=== PATIENT | female | born 1955 | race Caucasian/White ===

== ENCOUNTER 2019-07-06 10:52 | Inpatient (IN) | payer MEDICARE, OTHER ==
[~2019-07-06] VITALS: Ht 167.6 cm; Wt 79.2 kg
--- NOTE | 2019-07-06 11:00 | NUR ---
pt presented to ER ambulatory for C/O bloody stool x2 episode AA/Ox4. able to speak in complete sentences. able to make needs known Respiration even and unlabored No s/s cardiovascular distress noted SR up for safety. placed on a gown. bed locked, lowest position. instructed pt to call nurse for assistance monitored accordingly. Will continue to monitor patient.
--- NOTE | 2019-07-06 11:00 | NUR ---
Dr. Corea in [facility] for MSE Addendum: 07/06/19 at [address] Corea at [facility] for [facility].
[2019-07-06] MEDS ORDERED: metoprolol PO (11:06)
[2019-07-06] MEDS ORDERED: ATOR20TA PO (11:06)
[2019-07-06] MEDS ORDERED: FAMO-132 PO (11:06)
[2019-07-06] MEDS ORDERED: ESCI20TA PO (11:06)
[2019-07-06] MEDS ORDERED: wellbutrin PO (11:06)
[2019-07-06] MEDS ORDERED: PANTOPRAZOLE SODIUM 40 MG VIAL IV ONE (11:15)
[2019-07-06] MEDS ORDERED: PANTOPRAZOLE SODIUM 40 MG VIAL ONE (11:44)
--- NOTE | 2019-07-06 11:58 | NUR ---
report given to Silvino VILLEGAS
[2019-07-06 12:04] LABS: BASOPHILS # (AUTO) 0.1 K/uL (0.0-8.0); BASOPHILS % (AUTO) 0.7 % (0.0-2.0); EOSINOPHILS # (AUTO) 0.2 K/uL (0.0-0.7); EOSINOPHILS % (AUTO) 2.4 % (0.0-7.0); HEMATOCRIT 38.4 % (31.2-41.9); LYMPHOCYTES # (AUTO) 2.9 K/uL (20.0-40.0); LYMPHOCYTES % (AUTO) 40.1 % (20.5-51.5); MEAN CORPUSCULAR HEMOGLOBIN 30.2 uug (24.7-32.8); MEAN CORPUSCULAR HGB CONC 34 g/dL (32.3-35.6); MEAN CORPUSCULAR VOLUME 89.4 fL (75.5-95.3); MONOCYTES # (AUTO) 0.4 K/uL (2.0-10.0); MONOCYTES % (AUTO) 5.9 % (0.0-11.0); NEUTROPHILS # (AUTO) 3.7 K/uL (1.8-8.9); NEUTROPHILS % (AUTO) 50.9 % (38.5-71.5); PLATELET COUNT (AUTO) 204 K/uL (179-408); RED BLOOD CELL COUNT(AUTO) 4.29 MIL/uL (3.63-4.92); WHITE BLOOD COUNT (AUTO) 7.3 K/uL (3.8-11.8)
[2019-07-06 12:14] LABS: CREATININE 0.7 mg/dL (0.6-1.3); POTASSIUM 4.7 mmol/L (3.5-5.1)
[2019-07-06 12:20] LABS: BILIRUBIN,DIRECT 0.1 mg/dL (0.0-0.2); BILIRUBIN,TOTAL 0.6 mg/dL (0.2-1.0); TOTAL PROTEIN, SERUM 7.1 g/dL (6.4-8.2)
--- NOTE | 2019-07-06 12:20 | NUR ---
Pt. admitted to Tele Room 314 , under care of Dr. Sandeep Pepe Belongs List completed. All belongings with pt AA/Ox4. Able to speak in complete sentences No s/s of distress noted No s/s cardiovascular distress
[2019-07-06 12:25] VITALS: BP 129/71
[2019-07-06] MEDS ORDERED: GOLYTELY 4000 ML BOTTLE PO ONE (12:45)
[2019-07-06 16:00] VITALS: BP 103/52
[2019-07-06] MEDS ORDERED: ACETAMINOPHEN 325 MG TABLET PO PRN (17:00)
[2019-07-06] MEDS ORDERED: MORPHINE SULFATE 2 MG/1 ML DISP.SYRIN IV PRN (17:00)
[2019-07-06] MEDS ORDERED: ONDANSETRON 4 MG/2 ML VIAL IV PRN (17:00)
--- NOTE | 2019-07-06 19:30 | NUR ---
Received patient awake and alert in bed, no signs of acute distress noted. Patient is A/Ox4. complains of some abdominal pain, tolerable. Patient is for EGD/colonoscopy procedure at [address] Snowden. NPO after midnight. Patient almost finished with golytely. No reports of bloody stool. Heplock on the right hand is intact and patent. Safety measures initiated. Bed is low and locked, call light within reach. Will continue to monitor.
[2019-07-06 20:04] VITALS: BP 122/63
[2019-07-06] MEDS: IV D5/ 0.9% NACL 1,000 ML IV PRN (20:59)
[2019-07-06] MEDS: PANTOPRAZOLE SODIUM 40 MG VIAL IV SCH (21:15)
[2019-07-07] VITALS: BP 119/56
--- NOTE | 2019-07-07 00:05 | NUR ---
Patient moved to room 305
[2019-07-07 04:23] VITALS: BP 121/63
--- NOTE | 2019-07-07 05:30 | NUR ---
Consent signed for EGD/colonoscopy
[2019-07-07 05:36] LABS: BASOPHILS # (AUTO) 0.1 K/uL (0.0-8.0); BASOPHILS % (AUTO) 1.1 % (0.0-2.0); EOSINOPHILS # (AUTO) 0.2 K/uL (0.0-0.7); EOSINOPHILS % (AUTO) 2.5 % (0.0-7.0); HEMATOCRIT 36.1 % (31.2-41.9); HEMOGLOBIN 12.2 g/dL (10.9-14.3); LYMPHOCYTES # (AUTO) 2.9 K/uL (20.0-40.0); LYMPHOCYTES % (AUTO) 40.3 % (20.5-51.5); MEAN CORPUSCULAR HEMOGLOBIN 30.4 uug (24.7-32.8); MEAN CORPUSCULAR HGB CONC 34 g/dL (32.3-35.6); MEAN CORPUSCULAR VOLUME 89.7 fL (75.5-95.3); MONOCYTES # (AUTO) 0.4 K/uL (2.0-10.0); MONOCYTES % (AUTO) 5.9 % (0.0-11.0); NEUTROPHILS # (AUTO) 3.5 K/uL (1.8-8.9); NEUTROPHILS % (AUTO) 50.2 % (38.5-71.5); PLATELET COUNT (AUTO) 188 K/uL (179-408); RED BLOOD CELL COUNT(AUTO) 4.03 MIL/uL (3.63-4.92); WHITE BLOOD COUNT (AUTO) 7.1 K/uL (3.8-11.8)
[2019-07-07 05:43] LABS: CREATININE 0.7 mg/dL (0.6-1.3); POTASSIUM 4.1 mmol/L (3.5-5.1)
--- NOTE | 2019-07-07 07:30 | NUR ---
Recieved pt lying in bed, awake, alert and orientedx3. Color is good. Denies any abdomenal discomforts, no bleeding noted. Kept NPO. Main IVF is D5NS at 85ml/hr on her right hand g#20. Pre-op checklist done. Pt is going to have an EGD and colonoscopy at 10:30AM. Consent is signed.
[2019-07-07 08:00] VITALS: BP 117/66
[2019-07-07] MEDS: PANTOPRAZOLE SODIUM 40 MG VIAL IV SCH (08:23)
[2019-07-07 08:25] LABS: *BILIRUBIN,URIN NEGATIVE (NEGATIVE); *BLOOD, URINE NEGATIVE (NEGATIVE); *CLARITY,URINE CLEAR (CLEAR); *COLOR,URINE YELLOW (YELLOW); *KETONES,URINE NEGATIVE (NEGATIVE); *UROBILINOGEN,URINE 0.2 E.U./dl (NORMAL); LEUKOCYTE ESTERASE ,URINE NEGATIVE (NEGATIVE); NITRITE, URINE NEGATIVE (NEGATIVE); UGLUCOSE NEGATIVE (NEGATIVE)
[2019-07-07] MEDS: IV D5/ 0.9% NACL 1,000 ML IV PRN (09:25)
--- NOTE | 2019-07-07 10:15 | NUR ---
Pt is brought down to the GI lab via gurney. Condition is stable.
[2019-07-07] MEDS ORDERED: MIDAZOLAM HCL 2 MG/2 ML VIAL ONE (10:43)
[2019-07-07] MEDS ORDERED: PROPOFOL 200 MG/20 ML BOTTLE ONE (10:44)
--- NOTE | 2019-07-07 11:45 | NUR ---
Pt is back from Recovery room via [facility]. Post proceedure. Awake, alert and orientedx3. Denies any nausea/vomiting.
--- NOTE | 2019-07-07 12:00 | NUR ---
Dr Pepe called and discharge the pt. Pt able to eat some jello and waiting for her lunch food.
[2019-07-07 12:16] VITALS: BP 139/64
--- NOTE | 2019-07-07 12:30 | NUR ---
Pt ate good and tolerating well. Discharge instructions given with good understanding.
[2019-07-07] MEDS ORDERED: PROPOFOL 200 MG/20 ML BOTTLE IV ONE (12:49)
[2019-07-07] MEDS ORDERED: LIDOCAINE-MPF 2% 5 ML VIAL IJ ONE (12:49)
[2019-07-07] MEDS ORDERED: IV LACTATED RINGERS SOLUTION 1,000 ML BAG IV ONE (12:49)
--- NOTE | 2019-07-07 12:50 | NUR ---
Discharged via wheelchair and picked up by her son. Condition is stable.
== END 2019-07-07 12:50 | disposition home or self-care (01) | DRG 393 ==
LOC: ER 10:52 → TELE3 12:08
PROVIDERS: ADMIT Internal Medicine Nephrology; ATTEND Internal Medicine Nephrology
PROC: 0DJD8ZZ Inspection of Lower Intestinal Tract, Via Natural or Artificial Opening Endoscopic (ICD-10-PCS; principal; 2019-07-07)
PROC: 0DB68ZX Excision of Stomach, Via Natural or Artificial Opening Endoscopic, Diagnostic (ICD-10-PCS; 2019-07-07)
DX: K64.8 Other hemorrhoids (principal); K29.71 Gastritis, unspecified, with bleeding; K25.4 Chronic or unspecified gastric ulcer with hemorrhage; E78.5 Hyperlipidemia, unspecified; F32.9 Major depressive disorder, single episode, unspecified; G89.29 Other chronic pain; I48.0 Paroxysmal atrial fibrillation; M54.16 Radiculopathy, lumbar region; K57.30 Diverticulosis of large intestine without perforation or abscess without bleeding; K58.1 Irritable bowel syndrome with constipation; Z87.11 Personal history of peptic ulcer disease
CPT/HCPCS: 36415; 71045; 83550; 85025; 85730; 86850; 86900; 86901; 93005; A4217; A4663; C9113; G0378; J2250; J3490; J7042; J7120

== ENCOUNTER 2023-02-07 11:24 | Emergency (ER) | payer MEDICARE, OTHER ==
[~2023-02-07] VITALS: Ht 162.6 cm; Wt 74.8 kg
[~2023-02-07 11:24] MED LIST: ATOR20TA PO; ESCI20TA PO; FAMO-132 PO; metoprolol PO; wellbutrin PO
[2023-02-07 12:12] LABS: BASOPHILS # (AUTO) 0.1 K/UL (0.0-0.2); BASOPHILS % (AUTO) 1.1 % (0.0-2.0); EOSINOPHILS # (AUTO) 0.2 K/uL (0.0-0.7); EOSINOPHILS % (AUTO) 2.3 % (0.0-7.0); HEMATOCRIT 36.8 % (31.2-41.9); HEMOGLOBIN 12.2 g/dL (10.9-14.3); LYMPHOCYTES # (AUTO) 2.9 K/uL (0.8-4.8); LYMPHOCYTES % (AUTO) 41.4 % (20.5-51.5); MEAN CORPUSCULAR HEMOGLOBIN 30.2 uug (24.7-32.8); MEAN CORPUSCULAR HGB CONC 33 g/dL (32.3-35.6); MEAN CORPUSCULAR VOLUME 90.9 fL (75.5-95.3); MONOCYTES # (AUTO) 0.4 K/uL (0.1-1.30); NEUTROPHILS # (AUTO) 3.4 K/uL (1.8-8.9); NEUTROPHILS % (AUTO) 49.2 % (38.5-71.5); PLATELET COUNT (AUTO) 202 K/uL (179-408); RED BLOOD CELL COUNT(AUTO) 4.05 MIL/uL (3.63-4.92); RED CELL DISTRIBUTION WIDTH 13.2 % (12.3-17.7); WHITE BLOOD COUNT (AUTO) 6.9 K/uL (3.8-11.8)
[2023-02-07 12:14] LABS: DIFFERENTIAL COMMENT 1
[2023-02-07 12:36] LABS: CALCIUM 8.6 mg/dL (8.5-10.1); CREATININE 0.6 mg/dL (0.6-1.3); POTASSIUM 4.3 mmol/L (3.5-5.1)
[2023-02-07 12:42] LABS: ALBUMIN 3.1 g/dL (3.4-5.0); BILIRUBIN,TOTAL 0.3 mg/dL (0.2-1.0); TOTAL PROTEIN, SERUM 6.8 g/dL (6.4-8.2)
[2023-02-07 12:56] LABS: *BILIRUBIN,URIN NEGATIVE (NEGATIVE); *BLOOD, URINE NEGATIVE (NEGATIVE); *CLARITY,URINE CLEAR (CLEAR); *COLOR,URINE YELLOW (YELLOW); *KETONES,URINE NEGATIVE (NEGATIVE); *PROTEIN,URINE NEGATIVE (NEGATIVE); *UROBILINOGEN,URINE 0.2 E.U./dl (NORMAL); LEUKOCYTE ESTERASE ,URINE NEGATIVE (NEGATIVE); NITRITE, URINE NEGATIVE (NEGATIVE); UGLUCOSE NEGATIVE (NEGATIVE)
[2023-02-07 13:07] LABS: *AMPHETAMINE, URINE NEGATIVE (NEGATIVE); *BARBITURATE, URINE NEGATIVE (NEGATIVE); *BENZODIAZEPINE, URINE NEGATIVE (NEGATIVE); *CANNABINOID, URINE NEGATIVE (NEGATIVE); *COCCAINE, URINE NEGATIVE (NEGATIVE); *OPIATE, URINE NEGATIVE (NEGATIVE); *PHENCYCLIDINE SCREEN,URINE NEGATIVE (NEGATIVE)
[2023-02-07] MEDS ORDERED: LORAZEPAM 0.5 MG TABLET PO ONE (13:15)
[2023-02-07] MEDS ORDERED: LORAZEPAM 0.5 MG TABLET ONE (13:21)
[2023-02-07] MEDS ORDERED: LORA0.5T48 PO (13:29)
[2023-02-07 13:40] LABS: FENTANYL, URINE NEGATIVE (NEGATIVE)
[2023-02-07 16:30] VITALS: BP 121/69; O2SAT 96
== END 2023-02-07 13:42 | disposition home or self-care (01) ==
LOC: ER 11:24
DX: F51.02 Adjustment insomnia (principal); R55 Syncope and collapse; E78.5 Hyperlipidemia, unspecified; K21.9 Gastro-esophageal reflux disease without esophagitis; F32.A Depression, unspecified; F17.200 Nicotine dependence, unspecified, uncomplicated; Z88.5 Allergy status to narcotic agent
CPT/HCPCS: 99285; 70450; 71045; 80053; 85025; 84484; 36415; 93005; 80307; 81003; J7040; A4606; A4663